=== PATIENT | female | born 1985 | race Caucasian/White ===

== ENCOUNTER 2016-10-17 20:46 | Emergency (ER) | payer MEDICAID ==
--- NOTE | 2016-10-17 21:13 | Emergency Department Record ---
History of Present Illness - General Chief Complaint: Ankle/Foot Injury Stated Complaint: ANKLE INJURY Time Seen by Provider: 10/17/16 21:08 Source: Patient Mode of Arrival: Ambulatory Limitations: No limitations - History of Present Illness Initial Comments: 31 yo presents with right lateral ankle pain. She twisted the ankles yesterday walking on uneven pavement. No other pain or injuries. Complaint: Ankle injury Onset/Timin -: Days(s) Injury: Ankle: Right Place: Home Severity: Mild Severity scale (1-10): 7 Improves With: Rest Worsens With: Weight bearing Context: Walking Associated Symptoms: Swelling, Able to partially bear weight Treatments Prior to Arrival: NSAIDS - Related Data Home Medications Medication Instructions Recorded Confirmed Last Taken Norgestimate-Ethinyl Estradiol 1 tab PO DAILY 10/17/16 10/17/16 10/17/16 [Harding-Linyah 28 Tablet] Allergies Allergy/AdvReac Type Severity Reaction Status Date / Time metoclopramide HCl Allergy HYPERSENSIT Verified 10/17/16 21:01 [From [facility]] [facility] [employer] Travel Screening - Travel/Exposure Within Last 30 Days Have you traveled within the last 30 days?: No - Travel Symptoms Symptom Screening: None Review of Systems Constitutional: Denies: Chills, Fever Eyes: Denies: Eye pain ENT: Denies: Congestion, Ear pain, Throat pain Respiratory: Denies: Cough, Dyspnea Cardiovascular: Denies: Chest pain, Syncope Endocrine: Denies: Fatigue Gastrointestinal: Denies: Abdominal pain, Diarrhea, Nausea, Vomiting Genitourinary: Denies: Dysuria Musculoskeletal: Reports: As per HPI, Arthralgia Skin: Reports: As per HPI, Bruising Neurological: Denies: Confusion, Headache Psychiatric: Denies: Anxiety Hematological/Lymphatic: Denies: Blood Clots, Easy bleeding, Easy bruising Past Medical History - SOCIAL HISTORY Smoking Status: Current every day smoker - RESPIRATORY Hx Respiratory Disorders: Yes Comment:: allergies - CARDIOVASCULAR Hx Cardio Disorders: No - NEURO Hx Neuro Disorders: Yes Hx Headaches: Yes Hx of Migraines: Yes (come and go) - GI Hx GI Disorders: No - Hx Genitourinary Disorders: No - ENDOCRINE Hx Endocrine Disorders: No - MUSCULOSKELETAL Hx Musculoskeletal Disorders: Yes Comment:: pain numbness and decreased grio right hand/arm - PSYCH Hx Psych Problems: No - HEMATOLOGY/ONCOLOGY Hx Hematology/Oncology Disorders: No Family Medical History Any Significant Family History?: Yes Hx Cancer: Grandparents Hx Diabetes: Grandparents Hx Heart Disease: Grandparents Hx HTN: Grandparents Physical Exam - General General Appearance: Alert, Oriented x3, Cooperative, No acute distress Limitations: No limitations - Head Head exam: Atraumatic, Normocephalic, Normal inspection - Eye Eye exam: Normal appearance - ENT ENT exam: Normal exam Ear exam: Normal external inspection Nasal Exam: Normal inspection Mouth exam: Normal external inspection - Neck Neck exam: Normal inspection - Cardiovascular Cardiovascular Exam: Regular rate, Normal rhythm, Normal heart sounds - Rectal Rectal exam: Deferred - exam: Deferred - Extremities Extremities exam: Full ROM, Joint swelling, Normal capillary refill, Tenderness. negative: Normal inspection, Pedal edema Image of Feet: 1 - mild swelling, mild bruising, no proximal fibular tenderness or foot tenderness laterally, achilles is intact - Back Back exam: Reports: Full ROM - Neurological Neurological exam: Alert, Normal gait, Oriented X3, Reflexes normal - Psychiatric Psychiatric exam: Normal affect, Normal mood. negative: Agitated, Anxious - Skin Skin exam: Dry, Intact, Normal color, Warm Course Vital Signs 10/17/16 21:03 Temperature 99.0 F Pulse Rate [ 76 Pulse Ox Probe] Respiratory 18 Rate Blood Pressure 99/70 [Left Arm] Pulse Ox 100 - Reevaluation(s) Reevaluation #1: The XR read was negative for acute process. No fx. She will be provided crutches and air splint for support 10/17/16 22:17 Disposition Disposition: Discharge Clinical Impression: Ankle sprain Qualifiers: Encounter type: initial encounter Involved ligament of ankle: unspecified ligament Laterality: right Qualified Code(s): S93.401A - Sprain of unspecified ligament of right ankle, initial encounter Disposition: Home, Self-Care Condition: (1) Good Instructions: Ankle Sprain (ED) Additional Instructions: Ice and elevate the ankle to minimize swelling use the support splint and crutches until pain free Recheck with your doctor in the next week if pain continues. Forms: Patient Portal Access Time of Disposition: 22:19
--- NOTE | 2016-10-20 15:42 | RADIOLOGY REPORT ---
DATE: 10/17/2016 at 9:43 p.m. EXAM: RIGHT ANKLE. HISTORY: Twisted right ankle yesterday; began hurting more today. TECHNIQUE: Three views of the right ankle. COMPARISON: None. ENCOUNTER: Initial. FINDINGS: Mild soft tissue swelling is seen laterally. No definite fracture or dislocation of the right ankle identified. IMPRESSION: MILD SOFT TISSUE SWELLING LATERALLY. NO DEFINITE FRACTURE OF THE RIGHT ANKLE IDENTIFIED. JOB NUMBER: [id number] MTDD
== END 2016-10-17 22:47 | disposition home or self-care (01) ==
LOC: ER 20:46
DX: S93.401A Sprain of unspecified ligament of right ankle, initial encounter (principal); S93.491A Sprain of other ligament of right ankle, initial encounter; X50.0XXA Overexertion from strenuous movement or load, initial encounter
CPT/HCPCS: 99283

== ENCOUNTER 2016-10-31 09:28 | Day surgery (SDC) | payer MEDICAID ==
[~2016-10-31 09:28] MED LIST: ACETAMINOPHEN 1,000 MG/100 ML BTL IV ONE
[2016-10-31] MEDS ORDERED: MIDAZOLAM HCL 2MG/2ML VIAL IV ONE (14:00)
[2016-10-31] MEDS ORDERED: PROPOFOL 10 MG/ML VIAL IV ONE (14:00)
[2016-10-31] MEDS ORDERED: FENTANYL PF 100MCG/2ML VIAL IV ONE (14:00)
[2016-10-31] MEDS ORDERED: ROPIVACAINE HCL (NAROPIN) /PF 5MG/ML 20ML VIAL IV ONE (14:00)
[2016-10-31] MEDS ORDERED: LIDOCAINE 2% MDV (20MG/ML) 20ML VIAL IV ONE (14:00)
[2016-10-31] MEDS ORDERED: DEXAMETHASONE 4 MG/ML 1ML VIAL IVP ONE (14:00)
[2016-10-31] MEDS ORDERED: OXYCODONE HCL/APAP 5MG/325MG TABLET PO ONE (15:25)
--- NOTE | 2016-11-05 09:47 | Operative Note ---
DATE OF SURGERY: 10/31/2016 Surgeon: Speedy Cortes DO Referring physician: Heriberto Gonzales MD PREOPERATIVE DIAGNOSIS: Carpal tunnel syndrome of the right wrist. POSTOPERATIVE DIAGNOSIS: Carpal tunnel syndrome of the right wrist. OPERATION: Carpal tunnel decompression, right median nerve of the wrist using a 3.5 loupe magnification. Anesthesia: Assisted regional anesthesia. PROCEDURE: This 31-year-old female was taken to the operating room and placed in the supine position on the operating room table. Assisted regional anesthesia was performed. The right upper extremity was elevated, prepped with Hibiclens, and draped in the usual sterile fashion. A palmar incision was utilized following the hypothenar crease from the level of the base of the web space of the thumb to the flexor crease of the wrist. Dissection was carried down through the skin and subcutaneous tissue. Hemostasis was obtained with the electrocautery. The palmar fascia was divided in line with the skin excision to expose the flexor retinaculum. This was punctured, split to its proximal margin, and then with the contents of the carpal tunnel under direct vision, the transverse carpal ligament was transected along its ulnar border. The radial flap was raised to expose the entire median nerve under the transverse carpal ligament. The recurrent motor branch of the median nerve was identified and found to be normal. The patient had two relatively large blood vessels on the ventral surface of the median nerve. These vessels were not violated. The tenosynovium was divided. The wound was irrigated with lactated Ringer's solution, the tourniquet was released. Hemostasis obtained with the electrocautery and the wound closed with interrupted 6-0 nylon suture. Sterile dressings were applied with plaster splint immobilization with the wrist in slight dorsiflexion and the thumb in an adducted position. The patient was then taken to the recovery room in stable condition. GROSS PATHOLOGY: This patient demonstrated essentially normal appearance of the median nerve itself, however, there were two blood vessels on the ventral surface of the median nerve, which were approximately 1 to 2 mm in diameter. The recurrent motor branch seemed to be normal. MTDD
== END 2016-10-31 11:20 | disposition home or self-care (01) ==
LOC: SUR 09:28
PROVIDERS: ATTEND Orthopaedic Surgery
DX: G56.01 Carpal tunnel syndrome, right upper limb (principal); F17.200 Nicotine dependence, unspecified, uncomplicated
CPT/HCPCS: 64721; 64450; 01810; 81025; J3010; J2795; 76942

== ENCOUNTER 2016-12-20 13:44 | Emergency (ER) | payer MEDICAID ==
[2016-12-20] MEDS ORDERED: MAGNESIUM HYDROXIDE/AL HYDROX 30 ML, LIDOCAINE VISC 2% 200 MG PO ONE ×2 (14:04)
--- NOTE | 2016-12-20 14:09 | Emergency Department Record ---
History of Present Illness - General Chief Complaint: Chest Pain Stated Complaint: CHEST PAIN,CALVIN Time Seen by Provider: 12/20/16 14:03 Source: Patient, RN notes reviewed Mode of Arrival: Ambulatory - History of Present Illness Initial Comments: burning in chest and bad taste in throat and feels like something is caught in her throught. took ibuprofen yesterday 800 mg po for a headache. Patient is under stress. Onset/Timin -: Days(s) - Related Data Home Medications Medication Instructions Recorded Confirmed Last Taken Norgestimate-Ethinyl Estradiol 1 tab PO DAILY 10/17/16 12/20/16 10/17/16 [Kimball-Linyah 28 Tablet] Previous Rx's Medication Instructions Recorded Omeprazole 20 mg PO DAILY #30 cap. 12/20/16 Sucralfate [Carafate] 1 gm PO QIDWMHS #30 tablet 12/20/16 Allergies Allergy/AdvReac Type Severity Reaction Status Date / Time metoclopramide HCl Allergy HYPERSENSIT Verified 12/20/16 14:20 [From [facility]] [employer] Travel Screening - Travel/Exposure Within Last 30 Days Have you traveled within the last 30 days?: No - Travel/Exposure Within Last Year Have you traveled outside the [place] in the last year?: No - Additonal Travel Details Have you been exposed to anyone with a communicable illness?: No - Travel Symptoms Symptom Screening: None Past Medical History - SOCIAL HISTORY Smoking Status: Current every day smoker Alcohol Use: None Drug Use: None - RESPIRATORY Hx Respiratory Disorders: Yes Comment:: allergies - CARDIOVASCULAR Hx Cardio Disorders: No - NEURO Hx Neuro Disorders: Yes Hx Headaches: Yes Hx of Migraines: Yes (come and go) - GI Hx GI Disorders: No - Hx Genitourinary Disorders: No - ENDOCRINE Hx Endocrine Disorders: No - MUSCULOSKELETAL Hx Musculoskeletal Disorders: Yes Comment:: PAIN, NUMBNESS RT HAND - PSYCH Hx Psych Problems: No - HEMATOLOGY/ONCOLOGY Hx Hematology/Oncology Disorders: No Family Medical History Any Significant Family History?: No Hx Cancer: Grandparents Hx Diabetes: Grandparents Hx Heart Disease: Grandparents Hx HTN: Grandparents Course Vital Signs 12/20/16 13:59 Temperature 98.7 F Pulse Rate 96 H Respiratory 18 Rate Blood Pressure 105/69 Pulse Ox 98 - Reevaluation(s) Reevaluation #1: patient feeling 100 % better 12/20/16 14:29 Disposition Clinical Impression: Esophagitis GERD (gastroesophageal reflux disease) Qualifiers: Esophagitis presence: with esophagitis Qualified Code(s): K21.0 - Gastro- esophageal reflux disease with esophagitis Disposition: Home, Self-Care Condition: (1) Good Instructions: Gastroesophageal Reflux Disease (ED) Additional Instructions: follow up with family in one week Prescriptions: Omeprazole 20 mg PO DAILY #30 elisha. Sucralfate [Carafate] 1 gm PO QIDWMHS #30 tablet Forms: Patient Portal Access Time of Disposition: 14:33 Quality - Quality Measures Quality Measures: N/A - Blood Pressure Screening Does Patient Have Any of the Following: No Blood Pressure Classification: Normal BP Reading Systolic Measurement: 105 Diastolic Measurement: 69 Screening for High Blood Pressure: < Normal BP, F/U Not Required > [G8783]
--- NOTE | 2016-12-20 14:38 | Emergency Department Record ---
History of Present Illness - General Chief Complaint: Chest Pain Stated Complaint: CHEST PAIN,CALVIN Time Seen by Provider: 12/20/16 14:03 Source: Patient, RN notes reviewed Mode of Arrival: Ambulatory - History of Present Illness Onset/Timin -: Days(s) - Related Data Home Medications Medication Instructions Recorded Confirmed Last Taken Norgestimate-Ethinyl Estradiol 1 tab PO DAILY 10/17/16 12/20/16 10/17/16 [Howell-Linyah 28 Tablet] Previous Rx's Medication Instructions Recorded Omeprazole 20 mg PO DAILY #30 elisha. 12/20/16 Sucralfate [Carafate] 1 gm PO QIDWMHS #30 tablet 12/20/16 Allergies Allergy/AdvReac Type Severity Reaction Status Date / Time metoclopramide HCl Allergy HYPERSENSIT Verified 12/20/16 14:20 [From [facility]] [employer] Travel Screening - Travel/Exposure Within Last 30 Days Have you traveled within the last 30 days?: No - Travel/Exposure Within Last Year Have you traveled outside the [place] in the last year?: No - Additonal Travel Details Have you been exposed to anyone with a communicable illness?: No - Travel Symptoms Symptom Screening: None Review of Systems Reviewed: No additional complaints except as noted below Constitutional: Reports: As per HPI. Denies: Chills, Fever, Malaise, Night sweats, Weakness, Weight change Eyes: Reports: As per HPI. Denies: Eye discharge, Eye pain, Photophobia, Vision change ENT: Reports: As per HPI. Denies: Congestion, Dental pain, Ear pain, Epistaxis , Hearing loss, Throat pain Respiratory: Reports: As per HPI. Denies: Cough, Dyspnea, Hemoptysis, Stridor, Wheezes Cardiovascular: Reports: As per HPI, Other (burning feeling in chest and throat and feels like something stuck in her throat but able to swallow. pain with eating doritoes). Denies: Arrhythmia, Chest pain, Dyspnea on exertion, Edema, Murmurs, Orthopnea, Palpitations, Paroxysmal nocturnal dyspnea, Rheumatic Fever , Syncope Endocrine: Reports: As per HPI. Denies: Fatigue, Heat or cold intolerance, Polydipsia, Polyuria Gastrointestinal: Reports: As per HPI. Denies: Abdominal pain, Constipation, Diarrhea, Hematemesis, Hematochezia, Melena, Nausea, Vomiting Genitourinary: Reports: As per HPI. Denies: Abnormal menses, Discharge, Dyspareunia, Dysuria, Frequency, Hematuria, Incontinence, Retention, Urgency Musculoskeletal: Reports: As per HPI. Denies: Arthralgia, Back pain, Gout, Joint swelling, Myalgia, Neck pain Skin: Reports: As per HPI. Denies: Bruising, Change in color, Change in hair/ nails, Lesions, Pruritus, Rash Neurological: Reports: As per HPI. Denies: Abnormal gait, Confusion, Headache, Numbness, Paresthesias, Seizure, Tingling, Tremors, Vertigo, Weakness Psychiatric: Reports: As per HPI. Denies: Anxiety, Auditory hallucinations, Depression, Homicidal thoughts, Suicidal thoughts, Visual hallucinations Hematological/Lymphatic: Reports: As per HPI. Denies: Anemia, Blood Clots, Easy bleeding, Easy bruising, Swollen glands Past Medical History - SOCIAL HISTORY Smoking Status: Current every day smoker Alcohol Use: None Drug Use: None - RESPIRATORY Hx Respiratory Disorders: Yes Comment:: allergies - CARDIOVASCULAR Hx Cardio Disorders: No - NEURO Hx Neuro Disorders: Yes Hx Headaches: Yes Hx of Migraines: Yes (come and go) - GI Hx GI Disorders: No - Hx Genitourinary Disorders: No - ENDOCRINE Hx Endocrine Disorders: No - MUSCULOSKELETAL Hx Musculoskeletal Disorders: Yes Comment:: PAIN, NUMBNESS RT HAND - PSYCH Hx Psych Problems: No - HEMATOLOGY/ONCOLOGY Hx Hematology/Oncology Disorders: No Family Medical History Any Significant Family History?: No Hx Cancer: Grandparents Hx Diabetes: Grandparents Hx Heart Disease: Grandparents Hx HTN: Grandparents Course Vital Signs 12/20/16 13:59 Temperature 98.7 F Pulse Rate 96 H Respiratory 18 Rate Blood Pressure 105/69 Pulse Ox 98 Disposition Clinical Impression: Esophagitis GERD (gastroesophageal reflux disease) Qualifiers: Esophagitis presence: with esophagitis Qualified Code(s): K21.0 - Gastro- esophageal reflux disease with esophagitis Disposition: Home, Self-Care Condition: (1) Good Instructions: Gastroesophageal Reflux Disease (ED) Additional Instructions: follow up with family in one week Prescriptions: Omeprazole 20 mg PO DAILY #30 elisha. Sucralfate [Carafate] 1 gm PO QIDWMHS #30 tablet Forms: Patient Portal Access Quality - Quality Measures Quality Measures: N/A - Blood Pressure Screening Does Patient Have Any of the Following: No Blood Pressure Classification: Normal BP Reading Systolic Measurement: 105 Diastolic Measurement: 69 Screening for High Blood Pressure: < Normal BP, F/U Not Required > [G8783]
== END 2016-12-20 14:48 | disposition home or self-care (01) ==
LOC: ER 13:44
DX: K21.0 Gastro-esophageal reflux disease with esophagitis (principal); R06.00 Dyspnea, unspecified; R07.89 Other chest pain
CPT/HCPCS: 99282

== ENCOUNTER 2017-03-17 10:33 | Emergency (ER) | payer MEDICAID ==
[2017-03-17] MEDS ORDERED: KETOROLAC 30 MG/ML VIAL IM ONE (10:46)
--- NOTE | 2017-03-17 10:48 | Emergency Department Record ---
History of Present Illness - General Chief Complaint: Knee injury Stated Complaint: SWOLLEN KNEE Time Seen by Provider: 03/17/17 10:41 Source: Patient Mode of Arrival: Ambulatory Limitations: No limitations - History of Present Illness Initial Comments: 31 yo female presents this morning with left anterior knee pain. She states she noted the pain anteriorly upon standing at 4am. The pain is located distal to the patella near the area of the patellar tendon. No warmth or redness. She notes a small amount of swelling. No history of fever or trauma. No prior knee problems. No recent illness. No calf pain or swelling. MD Complaint: Knee injury, Other (Left knee pain) Onset/Timin -: Hour(s) Injury: Knee: Left Type of Injury: Unknown Place: Home Severity scale (1-10): 1 Improves With: Immobilization Worsens With: Movement, Weight bearing Associated Symptoms: Ambulatory, Able to partially bear weight - Related Data Previous Rx's Medication Instructions Recorded Methylprednisolone [Medrol Dose 0 mg PO UD #1 tab.ds.pk 03/17/17 Pack] Allergies Allergy/AdvReac Type Severity Reaction Status Date / Time metoclopramide HCl Allergy HYPERSENSIT Unverified 02/11/17 15:02 [From [facility]] [employer] Travel Screening - Travel/Exposure Within Last 30 Days Have you traveled within the last 30 days?: No Review of Systems Constitutional: Denies: Chills, Fever, Malaise, Weakness Eyes: Denies: Eye discharge ENT: Denies: Congestion, Throat pain Respiratory: Denies: Cough Cardiovascular: Denies: Chest pain, Syncope Endocrine: Denies: Fatigue Gastrointestinal: Denies: Abdominal pain, Diarrhea, Nausea, Vomiting Genitourinary: Denies: Dysuria Musculoskeletal: Reports: As per HPI, Arthralgia, Joint swelling. Denies: Back pain, Myalgia, Neck pain Skin: Denies: Bruising, Change in color, Rash Neurological: Denies: Headache, Numbness, Tremors, Weakness Psychiatric: Denies: Anxiety Hematological/Lymphatic: Denies: Blood Clots, Easy bleeding, Easy bruising, Swollen glands Past Medical History - SOCIAL HISTORY Smoking Status: Current every day smoker Alcohol Use: None Drug Use: None - RESPIRATORY Hx Respiratory Disorders: Yes Comment:: allergies - CARDIOVASCULAR Hx Cardio Disorders: No - NEURO Hx Neuro Disorders: Yes Hx Headaches: Yes Hx of Migraines: Yes (come and go) - GI Hx GI Disorders: No - Hx Genitourinary Disorders: No - ENDOCRINE Hx Endocrine Disorders: No - MUSCULOSKELETAL Hx Musculoskeletal Disorders: Yes Comment:: PAIN, NUMBNESS RT HAND - PSYCH Hx Psych Problems: No - HEMATOLOGY/ONCOLOGY Hx Hematology/Oncology Disorders: No Family Medical History Any Significant Family History?: Yes Hx Cancer: Grandparents Hx Diabetes: Grandparents Hx Heart Disease: Grandparents Hx HTN: Grandparents Physical Exam - General General Appearance: Alert, Oriented x3, Cooperative, No acute distress Limitations: No limitations - Head Head exam: Normal inspection - Eye Eye exam: Normal appearance - ENT ENT exam: Normal exam Ear exam: Normal external inspection Nasal Exam: Normal inspection Mouth exam: Normal external inspection - Neck Neck exam: Normal inspection - Respiratory Respiratory exam: Normal lung sounds bilaterally. negative: Respiratory distress - Cardiovascular Cardiovascular Exam: Regular rate, Normal rhythm, Normal heart sounds - Rectal Rectal exam: Deferred - exam: Deferred - Extremities Extremities exam: Normal inspection, Joint swelling, Normal capillary refill. negative: Calf tenderness, Pedal edema Image of Full Body: 1 - very minimal swelling in the area of the patellar tendon, the tendon function is intact, no warmth or swelling, no posterior tenderness, no popliteal tenderness, no calf tenderness, no medial or lateral joint line tenderness, - Back Back exam: Reports: Normal inspection. Denies: CVA tenderness (R), CVA tenderness (L) - Neurological Neurological exam: Alert, Normal gait, Oriented X3 - Psychiatric Psychiatric exam: Normal affect, Normal mood. negative: Agitated, Anxious - Skin Skin exam: Dry, Intact, Normal color, Warm. negative: Cyanosis, Erythema, Mottled Course Vital Signs 03/17/17 10:36 Temperature 97.6 F Pulse Rate 76 Respiratory 18 Rate Blood Pressure 99/66 Pulse Ox 99 - Reevaluation(s) Reevaluation #1: The XR was read as negative DC home with supportive care and follow up 03/17/17 11:18 Disposition Disposition: Discharge Clinical Impression: Tendonitis, Knee effusion, left Condition: (1) Good Instructions: Knee Sprain (ED), Tendinitis (ED) Additional Instructions: No weight bearing until pain free Return if worse Use the crutches and knee immobilizer until pain free Ice the knee for 15-20minutes 3-4 times daily. Prescriptions: Methylprednisolone [Medrol Dose Pack] 0 mg PO UD #1 tab.ds.pk Referrals: EMBER CHANG [DOCTOR OF OSTEOPATH] - [facility] [Provider Group] Forms: Patient Portal Access Time of Disposition: 11:20 Quality - Quality Measures Quality Measures: N/A - Blood Pressure Screening Does Patient Have Any of the Following: No Blood Pressure Classification: Normal BP Reading Systolic Measurement: 99 Diastolic Measurement: 66 Screening for High Blood Pressure: < Normal BP, F/U Not Required > [G8783]
--- NOTE | 2017-03-17 14:08 | RADIOLOGY REPORT ---
EXAM: LEFT KNEE, FOUR VIEWS HISTORY: ACUTE LEFT KNEE PAIN, SWELLING, NO INJURY. TECHNIQUE: Four views of the left knee were obtained. Comparison: None. FINDINGS: No bone or joint abnormality. IMPRESSION: NEGATIVE LEFT KNEE EXAMINATION. JOB NUMBER: [id number] MTDD
== END 2017-03-17 11:44 | disposition home or self-care (01) ==
LOC: ER 10:33
DX: M76.52 Patellar tendinitis, left knee (principal); M25.462 Effusion, left knee
CPT/HCPCS: 99283; 96372; 99284; 73564; J1885

== ENCOUNTER 2017-07-12 19:01 | Emergency (ER) | payer MEDICAID ==
[2017-07-12] MEDS ORDERED: IBUPROFEN 600 MG TABLET PO ONE (19:28)
[2017-07-12] MEDS ORDERED: HYDROCODONE/APAP 7.5/325MG TABLET PO ONE (19:28)
[2017-07-12] MEDS ORDERED: SILVER SULFADIAZINE 25 GM CREAM TOP ONE (19:28)
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
[2017-07-12] MEDS ORDERED: ONDANSETRON 4 MG ODT TABLET SL ONE (19:55)
== END 2017-07-12 20:00 | disposition home or self-care (01) ==
LOC: ER 19:01
DX: T23.252A Burn of second degree of left palm, initial encounter (principal); T23.222A Burn of second degree of single left finger (nail) except thumb, initial encounter; X12.XXXA Contact with other hot fluids, initial encounter; Y93.G3 Activity, cooking and baking; F17.210 Nicotine dependence, cigarettes, uncomplicated
CPT/HCPCS: 99283

== ENCOUNTER 2017-11-29 09:39 | Emergency (ER) | payer MEDICAID ==
--- NOTE | 2017-11-29 09:50 | Emergency Department Record ---
History of Present Illness - General Chief complaint: ENT Stated complaint: SORE THROAT Time Seen by Provider: 11/29/17 09:47 Source: Patient, Family Mode of Arrival: Ambulatory Limitations: No limitations - History of Present Illness Initial comments: 32 yo female presents with sore throat for a couple days. Her son is in the ED as well with sore throat. No rash. A nephew currently has coxsackie virus. No NVD. No fever this morning. She has had some subjective fever. No significant cough. MD complaint: Sore throat -: Days(s) (2) Location: Throat Severity: Moderate Quality: Aching Consistency: Constant Improves with: Cold therapy, NSAID Worsens with: Swallowing - Related Data Home Medications Medication Instructions Recorded Confirmed Last Taken No Home Med [NO HOME MEDS] 11/29/17 11/29/17 Unknown Allergies Allergy/AdvReac Type Severity Reaction Status Date / Time metoclopramide HCl Allergy HYPERSENSIT Verified 11/29/17 09:42 [From [facility]] [employer] Review of Systems Constitutional: Reports: Fever. Denies: Chills, Malaise, Weakness Eyes: Denies: Eye discharge, Eye pain, Vision change ENT: Reports: Throat pain. Denies: Congestion, Epistaxis Respiratory: Denies: Cough, Dyspnea, Wheezes Cardiovascular: Denies: Chest pain, Syncope Endocrine: Denies: Fatigue Gastrointestinal: Denies: Abdominal pain, Diarrhea, Nausea, Vomiting Genitourinary: Denies: Dysuria, Urgency Musculoskeletal: Denies: Arthralgia, Joint swelling, Myalgia Skin: Denies: Bruising, Change in color, Rash Neurological: Reports: Headache (mild). Denies: Numbness, Weakness Psychiatric: Denies: Anxiety Hematological/Lymphatic: Denies: Easy bruising, Swollen glands Past Medical History - SOCIAL HISTORY Smoking Status: Current every day smoker Drug Use: None - RESPIRATORY Hx Respiratory Disorders: Yes Comment:: allergies - CARDIOVASCULAR Hx Cardio Disorders: No - NEURO Hx Neuro Disorders: Yes Hx Headaches: Yes Hx of Migraines: Yes (come and go) - GI Hx GI Disorders: No - Hx Genitourinary Disorders: No - ENDOCRINE Hx Endocrine Disorders: No - MUSCULOSKELETAL Hx Musculoskeletal Disorders: Yes Comment:: PAIN, NUMBNESS RT HAND - PSYCH Hx Psych Problems: No - HEMATOLOGY/ONCOLOGY Hx Hematology/Oncology Disorders: No Family Medical History Hx Cancer: Grandparents Hx Diabetes: Grandparents Hx Heart Disease: Grandparents Hx HTN: Grandparents Physical Exam - General General Appearance: Alert, Oriented x3, Cooperative, No acute distress Limitations: No limitations - Head Head exam: Normal inspection - Eye Eye exam: Normal appearance, PERRL. negative: Conjunctival injection, Scleral icterus - ENT ENT exam: Normal exam, Mucous membranes moist Ear exam: Normal external inspection Nasal Exam: Normal inspection Mouth exam: Normal external inspection Throat exam: Tonsillar erythema, Tonsillomegaly. negative: Tonsillar exudate, R peritonsillar mass, L peritonsillar mass - Neck Neck exam: Normal inspection, Full ROM, Lymphadenopathy (mild soft anterior cervical), Tenderness. negative: Meningismus, Thyromegaly - Respiratory Respiratory exam: Normal lung sounds bilaterally. negative: Respiratory distress - Cardiovascular Cardiovascular Exam: Regular rate, Normal rhythm, Normal heart sounds - GI/Abdominal GI/Abdominal exam: Soft. negative: Tenderness - Rectal Rectal exam: Deferred - exam: Deferred - Neurological Neurological exam: Alert, Oriented X3 - Psychiatric Psychiatric exam: Normal affect, Normal mood - Skin Skin exam: Dry, Intact, Normal color, Warm Course - Reevaluation(s) Reevaluation #1: Negative strep Likely viral based on multiple family contacts with the same We discussed the results, home care, and follow up We discussed reasons to return to the ED as well 11/29/17 10:15 Disposition Disposition: Discharge Clinical Impression: Viral pharyngitis Disposition: Home, Self-Care Condition: (1) Good Instructions: Hand, Foot, and Mouth Disease (ED) Additional Instructions: Stay well hydrated Return if worse, vomiting or any concerns This is contagious so wash your hands frequently Forms: Patient Portal Access Time of Disposition: 10:16 Quality - Quality Measures Quality Measures: N/A, Headache (All Ages) - Headache: Neuroimaging Quality Measure: Measure #419: Overuse of Neuroimaging ICD10 Codes Entered: Yes Neurological Exam: Patient had a normal neurological exam. [G9535] Headache: Use of Neuroimaging: < CTA, CT, MRA or MRI was NOT ordered > [G9534] - Blood Pressure Screening Does Patient Have Any of the Following: No Blood Pressure Classification: Normal BP Reading Systolic Measurement: 115 Diastolic Measurement: 52 Screening for High Blood Pressure: < Normal BP, F/U Not Required > [G8783]
[2017-11-29] MEDS: DEXAMETHASONE SOD PHOSPHATE 10MG/ML VIAL PO ONE (10:05)
== END 2017-11-29 10:35 | disposition home or self-care (01) ==
LOC: ER 09:39
DX: J20.8 Acute bronchitis due to other specified organisms (principal); F17.210 Nicotine dependence, cigarettes, uncomplicated
CPT/HCPCS: 99282 ×2; 87880; J1100

== ENCOUNTER 2018-06-30 08:34 | Emergency (ER) | payer MEDICAID ==
[2018-06-30] MEDS: KETOROLAC 30 MG/ML VIAL IVP ONE (09:05)
[2018-06-30] MEDS: DIPHENHYDRAMINE HCL 50 MG/ML VIAL IVP ONE (09:05)
[2018-06-30] MEDS: 0.9 % SODIUM CHLORIDE 1,000 ML BAG IV ONE (09:06)
[2018-06-30 09:14] LABS: BASO % 0.8 % (0-6); EOS % 3.2 % (0-6); HEMATOCRIT 40.6 % (35.0-47.0); HEMOGLOBIN 13.7 gm/dl (11.6-16.0); LYMPH % 28.7 % (16-45); MEAN CORPUSCULAR HEMOGLOBIN 31.7 pg (27-33); MEAN CORPUSCULAR HGB CONC 33.7 g/dl (32-36); MEAN PLATELET VOLUME 11.6 fl (7.4-10.4); MONO % 10.3 % (0-9); PLATELET COUNT 247 K/uL (130-400); RED BLOOD COUNT 4.32 M/uL (3.80-5.40)
[2018-06-30] MEDS: PROMETHAZINE HCL 12.5 MG in 0.9 % SODIUM CHLORIDE 100ML 100 ML IVPB ONE (10:08)
--- NOTE | 2018-06-30 10:28 | Emergency Department Record ---
History of Present Illness - General Chief Complaint: Headache Migraine Stated Complaint: MIGRAINE Time Seen by Provider: 06/30/18 08:44 Source: Patient Mode of Arrival: Ambulatory Limitations: No limitations - History of Present Illness Initial Comments: pt has a headache that is global. it isnot the worst tierney of her life but it wont go away. she has no nausea or photophobia Complaint: Headache Onset/Timin -: Days(s) Onset Description: Gradual Location: Diffuse Severity: Moderate Severity scale (1-10): 8 Quality: Similar to previous headaches Consistency: Constant Improves With: Nothing Worsens With: Noise Treatments Prior to Arrival: None - Related Data Allergies Allergy/AdvReac Type Severity Reaction Status Date / Time metoclopramide HCl Allergy HYPERSENSIT Verified 06/30/18 08:42 [From [facility] Travel Screening - Travel/Exposure Within Last 30 Days Have you traveled within the last 30 days?: No Review of Systems Reviewed: No additional complaints except as noted below Constitutional: Reports: As per HPI. Denies: Chills, Fever, Malaise, Night sweats, Weakness, Weight change Eyes: Reports: As per HPI. Denies: Eye discharge, Eye pain, Photophobia, Vision change ENT: Reports: As per HPI. Denies: Congestion, Dental pain, Ear pain, Epistaxis , Hearing loss, Throat pain Respiratory: Reports: As per HPI. Denies: Cough, Dyspnea, Hemoptysis, Stridor, Wheezes Cardiovascular: Reports: As per HPI. Denies: Arrhythmia, Chest pain, Dyspnea on exertion, Edema, Murmurs, Orthopnea, Palpitations, Paroxysmal nocturnal dyspnea, Rheumatic Fever, Syncope Endocrine: Reports: As per HPI. Denies: Fatigue, Heat or cold intolerance, Polydipsia, Polyuria Gastrointestinal: Reports: As per HPI. Denies: Abdominal pain, Constipation, Diarrhea, Hematemesis, Hematochezia, Melena, Nausea, Vomiting Genitourinary: Reports: As per HPI. Denies: Abnormal menses, Discharge, Dyspareunia, Dysuria, Frequency, Hematuria, Incontinence, Retention, Urgency Musculoskeletal: Reports: As per HPI. Denies: Arthralgia, Back pain, Gout, Joint swelling, Myalgia, Neck pain Skin: Reports: As per HPI. Denies: Bruising, Change in color, Change in hair/ nails, Lesions, Pruritus, Rash Neurological: Reports: As per HPI, Headache. Denies: Abnormal gait, Confusion, Numbness, Paresthesias, Seizure, Tingling, Tremors, Vertigo, Weakness Psychiatric: Reports: As per HPI. Denies: Anxiety, Auditory hallucinations, Depression, Homicidal thoughts, Suicidal thoughts, Visual hallucinations Hematological/Lymphatic: Reports: As per HPI. Denies: Anemia, Blood Clots, Easy bleeding, Easy bruising, Swollen glands Past Medical History - SOCIAL HISTORY Smoking Status: Current every day smoker Alcohol Use: None Drug Use: None - RESPIRATORY Hx Respiratory Disorders: Yes Comment:: allergies - CARDIOVASCULAR Hx Cardio Disorders: No - NEURO Hx Neuro Disorders: Yes Hx Headaches: Yes Hx of Migraines: Yes - GI Hx GI Disorders: No - Hx Genitourinary Disorders: No - ENDOCRINE Hx Endocrine Disorders: No - MUSCULOSKELETAL Hx Musculoskeletal Disorders: Yes - PSYCH Hx Psych Problems: No - HEMATOLOGY/ONCOLOGY Hx Hematology/Oncology Disorders: No Family Medical History Any Significant Family History?: Yes Hx Cancer: Grandparents Hx Diabetes: Grandparents Hx Heart Disease: Grandparents Hx HTN: Grandparents Physical Exam - General General Appearance: Alert, Oriented x3, Cooperative, Mild distress - Head Head exam: Normal inspection - Eye Eye exam: Normal appearance, PERRL, EOMI Pupils: Normal accommodation - ENT ENT exam: Normal exam, Mucous membranes moist, Normal external ear exam, Normal orophraynx Ear exam: Normal external inspection. negative: External canal tenderness Nasal Exam: Normal inspection. negative: Discharge, Sinus tenderness Mouth exam: Normal external inspection, Tongue normal Teeth exam: Normal inspection. negative: Dental caries Throat exam: Normal inspection. negative: Tonsillar erythema, Tonsillar exudate - Neck Neck exam: Normal inspection, Full ROM. negative: Tenderness - Respiratory Respiratory exam: Normal lung sounds bilaterally. negative: Respiratory distress - Cardiovascular Cardiovascular Exam: Regular rate, Normal rhythm, Normal heart sounds - GI/Abdominal GI/Abdominal exam: Soft, Normal bowel sounds. negative: Tenderness - Rectal Rectal exam: Deferred - exam: Deferred - Extremities Extremities exam: Normal inspection, Full ROM, Normal capillary refill. negative: Tenderness - Back Back exam: Reports: Normal inspection, Full ROM. Denies: Muscle spasm, Rash noted, Tenderness - Neurological Neurological exam: Alert, CN II-XII intact, Normal gait, Oriented X3 - Psychiatric Psychiatric exam: Normal affect, Normal mood - Skin Skin exam: Dry, Intact, Normal color, Warm Course Vital Signs 06/30/18 08:39 Temperature 97.6 F Pulse Rate 67 Respiratory 20 Rate Blood Pressure 100/48 Pulse Ox 100 - Reevaluation(s) Reevaluation #1: 06/30/18 10:26 pt feels better Medical Decision Making - Lab Data Result diagrams: 06/30/18 09:05 Lab Results 06/30/18 Range/Units 09:05 WBC 6.0 (4.2-12.2) K/uL RBC 4.32 (3.80-5.40) M/uL Hgb 13.7 (11.6-16.0) gm/dl Hct 40.6 (35.0-47.0) % MCV 94.0 (81-97) fl MCH 31.7 (27-33) pg MCHC 33.7 (32-36) g/dl RDW 13.0 (11.5-14.5) % Plt Count 247 (130-400) K/uL MPV 11.6 H (7.4-10.4) fl Gran % 57.0 (47-80) % Lymphocytes % 28.7 (16-45) % Monocytes % 10.3 H (0-9) % Eosinophils % 3.2 (0-6) % Basophils % 0.8 (0-6) % Disposition Disposition: Discharge Clinical Impression: Headache Qualifiers: Headache type: unspecified Headache chronicity pattern: acute headache Intractability: not intractable Qualified Code(s): R51 - Headache Disposition: Home, Self-Care Condition: (1) Good Instructions: Acute Headache (ED) Additional Instructions: follow up with family doctor. return sooner if worse Quality - Quality Measures Quality Measures: Headache (All Ages) - Headache: Neuroimaging Quality Measure: Measure #419: Overuse of Neuroimaging ICD10 Codes Entered: Yes Neurological Exam: Patient had a normal neurological exam. [G9535] Headache: Use of Neuroimaging: < CTA, CT, MRA or MRI was NOT ordered > [G9534] - Blood Pressure Screening Does Patient Have Any of the Following: No Blood Pressure Classification: Normal BP Reading Systolic Measurement: 100 Diastolic Measurement: 48 Screening for High Blood Pressure: < Normal BP, F/U Not Required > [G8783]
== END 2018-06-30 10:36 | disposition home or self-care (01) ==
LOC: ER 08:34
DX: R51 Headache (principal); F17.210 Nicotine dependence, cigarettes, uncomplicated
CPT/HCPCS: 99284 ×2; 96374; 96375; 85025; J1885; J1200; J2550; J7030

== ENCOUNTER 2019-05-07 08:59 | Emergency (ER) | payer MEDICAID ==
[2019-05-07] MEDS ORDERED: 0.9 % SODIUM CHLORIDE 1,000 ML BAG IV ONE (09:13)
[2019-05-07] MEDS ORDERED: KETOROLAC 30 MG/ML VIAL IVP ONE (09:13)
[2019-05-07] MEDS ORDERED: PROMETHAZINE HCL 12.5 MG in 0.9 % SODIUM CHLORIDE 100ML 100 ML IVPB ONE (09:14)
--- NOTE | 2019-05-07 09:18 | Emergency Department Record ---
History of Present Illness - General Chief Complaint: Headache Migraine Stated Complaint: MIGRAIN Time Seen by Provider: 05/07/19 09:02 Source: Patient Mode of Arrival: Ambulatory Limitations: No limitations - History of Present Illness Initial Comments: The patient is here due to a bad migraine BELLO for 24 hours. She woke up with the pain yesterday and it gradually worsened for the last 24 hours. The pain is over the front and sides of the head like a band. She did have some nausea and vomiting yesterday. The patient denies any visual changes, fever, chills, or neck pain. She states she has a long hx of these exact same BELLO's. MD Complaint: Headache Onset/Timin -: Days(s) Location: Frontal, Retro-orbital, Temporal Severity: Moderate Quality: Similar to previous headaches Associated Symptoms: Other Treatments Prior to Arrival: Ibuprofen - Related Data Home Medications Medication Instructions Recorded Confirmed Last Taken No Home Med [NO HOME MEDS] 05/07/19 05/07/19 Unknown Allergies Allergy/AdvReac Type Severity Reaction Status Date / Time metoclopramide HCl Allergy HYPERSENSIT Verified 05/07/19 09:10 [From [facility]] [employer] Travel Screening - Travel/Exposure Within Last 30 Days Have you traveled within the last 30 days?: No - Travel/Exposure Within Last Year Have you traveled outside the [place] in the last year?: No - Additonal Travel Details Have you been exposed to anyone with a communicable illness?: No Review of Systems Constitutional: Denies: Chills, Fever, Malaise Eyes: Denies: Eye discharge ENT: Denies: Congestion Respiratory: Denies: Cough Cardiovascular: Denies: Arrhythmia, Chest pain Past Medical History - SOCIAL HISTORY Smoking Status: Current every day smoker Alcohol Use: None Drug Use: Heavy Drug Use Detail:: Marijuana - RESPIRATORY Hx Respiratory Disorders: No Comment:: allergies seasonal - CARDIOVASCULAR Hx Cardio Disorders: No - NEURO Hx Neuro Disorders: Yes Hx Headaches: Yes Hx of Migraines: Yes - GI Hx GI Disorders: No - Hx Genitourinary Disorders: No - ENDOCRINE Hx Endocrine Disorders: No - MUSCULOSKELETAL Hx Musculoskeletal Disorders: Yes Comment:: PAIN, NUMBNESS RT HAND - PSYCH Hx Psych Problems: No - HEMATOLOGY/ONCOLOGY Hx Hematology/Oncology Disorders: No Family Medical History Any Significant Family History?: No Hx Cancer: Grandparents Hx Diabetes: Grandparents Hx Heart Disease: Grandparents Hx HTN: Grandparents Physical Exam - General General Appearance: Alert, Oriented x3, Cooperative, No acute distress (The patient was laughing and texting on her phone as I entered the room and appears very nontoxic.) - Head Head exam: Atraumatic, Normocephalic, Normal inspection (The BELLO is 100% reproducible to palpation of the frontal and temporal skull areas.) - Eye Eye exam: Normal appearance, PERRL, EOMI. negative: Conjunctival injection - ENT Throat exam: Normal inspection. negative: Tonsillar erythema, Tonsillar exudate - Neck Neck exam: Normal inspection, Full ROM. negative: Lymphadenopathy, Meningismus, Tenderness - Respiratory Respiratory exam: Normal lung sounds bilaterally. negative: Respiratory distress - Cardiovascular Cardiovascular Exam: Regular rate, Normal rhythm, Normal heart sounds - GI/Abdominal GI/Abdominal exam: Soft, Normal bowel sounds. negative: Tenderness - Extremities Extremities exam: Normal inspection, Full ROM, Normal capillary refill. negative: Tenderness - Neurological Neurological exam: Alert, Normal gait, Oriented X3, Other (Neg Drift and [place]om[place].). negative: Abnormal gait, Altered, Motor sensory deficit Course Vital Signs 05/07/19 09:02 Temperature 97.4 F L Pulse Rate 64 Respiratory 16 Rate Blood Pressure 108/55 Pulse Ox 100 - Reevaluation(s) Reevaluation #1: The patient is doing a lot better at this time. She states the BELLO is MUCH improved and she is ready for home. 05/07/19 10:23 Disposition Disposition: Discharge Clinical Impression: Migraine Qualifiers: Migraine type: unspecified Status migrainosus presence: without status migrainosus Intractability: not intractable Qualified Code(s): G43.909 - Migraine, unspecified, not intractable, without status migrainosus Disposition: Home, Self-Care Condition: (2) Stable Instructions: Migraine Headache (ED) Additional Instructions: Please take your home medicines if needed and return to the ER for any worsening issues. Forms: Patient Portal Access Time of Disposition: 10:24 Quality - Quality Measures Quality Measures: Headache (All Ages) - Headache: Neuroimaging Quality Measure: Measure #419: Overuse of Neuroimaging ICD10 Codes Entered: Yes View Detail: Yes Neurological Exam: Patient had a normal neurological exam. [G9535] Headache: Use of Neuroimaging: < CTA, CT, MRA or MRI was NOT ordered > [G9534] - Blood Pressure Screening Does Patient Have Any of the Following: No Blood Pressure Classification: Normal BP Reading Systolic Measurement: 108 Diastolic Measurement: 55 Screening for High Blood Pressure: < Normal BP, F/U Not Required > [G8707]
[2019-05-07] MEDS ORDERED: METHYLPREDNISOLONE PF 125MG/VIAL IVP ONE (09:48)
== END 2019-05-07 10:36 | disposition home or self-care (01) ==
LOC: ER 08:59
DX: R11.2 Nausea with vomiting, unspecified (principal); F17.210 Nicotine dependence, cigarettes, uncomplicated; G43.909 Migraine, unspecified, not intractable, without status migrainosus
CPT/HCPCS: 99284 ×2; 96365; 96375; 96361; J1885; J2550; J2930; J7030